=== PATIENT | female | born 2000 | race Caucasian/White ===

== ENCOUNTER 2021-07-21 03:28 | Emergency (ER) | payer SELFPAY ==
--- NOTE | 2021-07-21 04:21 | EDM.PDOC ---
ED HPI GENERAL MEDICAL PROBLEM - General Chief Complaint: ENT Problem Stated Complaint: RT EAR PAIN Time Seen by Provider: 07/21/21 04:07 Source of Information: Reports: Patient, Significant Other History Limitations: Reports: No Limitations - History of Present Illness INITIAL COMMENTS - FREE TEXT/NARRATIVE: Ms. Foster is a pleasant 21-year-old woman who now presents to the ED stating that she has had right ear pain for about a week. She states that she was seen at the walk-in clinic this past 07/18/2021, and was told that there was no problem with her ear, and that pain was likely due to sinusitis. She was prescribed fluticasone nasal spray, which she has been taking as prescribed. He states that her pain has increased, however, and she has since developed a muffled sound in her right ear. She states that she has been taking acetaminophen in addition to the fluticasone. No prior right ear issues. Here in the ED, the patient's initial BP is found to be modestly elevated at 158/78, otherwise, she is hemodynamically stable, afebrile, saturating 100% on room air. She appears to be comfortable, in no acute distress. Prior to 1 week ago, the patient denies having a recent fever, chills, sore throat, ear pain, nasal or sinus congestion, cough, dyspnea, chest pain, palpitations, nausea, vomiting, constipation, diarrhea, abdominal pain, urinary symptoms, recent weight gain or weight loss, recent bloody bowel movements or black bowel movements, recent joint aches, headaches, or rashes. The patient does not have a PCP. She has received 2 COVID vaccinations. Right Ear Pain Score (Numeric/FACES): 8 - Related Data Allergies Allergy/AdvReac Type Severity Reaction Status Date / Time No Known Allergies Allergy Verified 07/21/21 04:07 Home Meds: Home Meds . [No Known Home Meds] 07/21/21 [History] Past Medical History Respiratory History: Reports: Asthma (suspected, not PFT-tested) Psychiatric History: Reports: ADHD (untreated), Anxiety (untreated) Endocrine/Metabolic History: Reports: Obesity/BMI 30+ Social & Family History - Tobacco Use Tobacco Use Status *Q: Never Tobacco User - Alcohol Use Alcohol Use History: Yes Alcohol Use Frequency: Socially - Recreational Drug Use Recreational Drug Use: No - Living Situation & Occupation Living situation: Reports: Single, with Significant Other Occupation: Employed ([employer]) ED ROS ENT - Review of Systems Review Of Systems: Comprehensive ROS is negative, except as noted in HPI. ED EXAM, ENT - Physical Exam Exam: See Below Exam Limited By: No Limitations General Appearance: Alert, WD/WN, No Apparent Distress Eye Exam: Bilateral Eye: EOMI, Normal Inspection Ears: Normal External Exam, Normal Canal, Hearing Grossly Normal, Normal TMs Nose: Normal Inspection, Normal Mucousa, No Blood Mouth/Throat: Normal Inspection, Normal Gums, Normal Lips, Normal Oropharynx, Normal Teeth Head: Atraumatic, Normocephalic Neck: Normal Inspection, Supple, Non-Tender, Full Range of Motion. No: Lymphadenopathy (L), Lymphadenopathy (R) Course - Vital Signs Last Recorded V/S: Last Vital Signs Temp 36.0 C L 07/21/21 04:05 Pulse 88 07/21/21 04:05 Resp 18 07/21/21 04:05 BP 158/78 H 07/21/21 04:05 Pulse Ox 100 07/21/21 04:05 - Re-Assessments/Exams Free Text/Narrative Re-Assessment/Exam: 07/21/21 04:15 On examination of both ears, I see no abnormalities, such as canal swelling or erythema, or TM abnormalities, such as bulging, bubbles, erythema, or purulence. The patient's right ear pain is likely referred pain, therefore I am recommending that she continue to use the fluticasone nasal spray, and I will refer her Dr. Loco, ENT, for further evaluation. Departure - Departure Time of Disposition: 04:18 Disposition: Home, Self-Care 01 Condition: Good Clinical Impression: Referred ear pain - Discharge Information *PRESCRIPTION DRUG MONITORING PROGRAM REVIEWED*: Not Applicable *COPY OF PRESCRIPTION DRUG MONITORING REPORT IN PATIENT ASIM: Not Applicable Instructions: Earache, Adult Referrals: PCP,None [Primary Care Provider] - Anoop Loco MD [Ordering Only Provider] - Forms: ED Department Discharge Additional Instructions: You were seen in the emergency room for 1 week of progressively worsening right ear pain. On examination, no sign of infection was found. Based on your history and physical examination, your right ear pain is most likely a referred ear pain = the problem is caused by irritation of a nerve that serves your right ear, but is not in your right ear. We recommend that you continue to use the fluticasone nasal spray, 2 sprays once a day, as prescribed. In addition to fluticasone, you may also take [id number] ibuprofen, 3 tablets up to every 8 hours, with food, as needed for discomfort. We recommend that you follow-up with the Scrap Iron Loader Dr. Anoop Loco, in [place], at the next available appointment, for further evaluation. If any other problems, please do not hesitate to return to the ER. Sepsis Event Note (ED) - Evaluation Sepsis Screening Result: No Definite Risk - Focused Exam Vital Signs: Vital Signs Temp Pulse Resp BP Pulse Ox 07/21/21 04:05 36.0 C L 88 18 158/78 H 100
== END 2021-07-21 04:40 | disposition home or self-care (01) ==
LOC: JD.ED 03:28
DX: H92.01 Otalgia, right ear (principal); E66.9 Obesity, unspecified
CPT/HCPCS: 99282

== ENCOUNTER 2021-07-22 01:14 | Emergency (ER) | payer SELFPAY ==
[2021-07-22] MEDS ORDERED: LORazepam 1 MG Tab PO ONE (01:53)
--- NOTE | 2021-07-22 02:00 | EDM.PDOC ---
ED HPI GENERAL MEDICAL PROBLEM - General Chief Complaint: Allergic Reaction Stated Complaint: ALLERGIC REACTION Time Seen by Provider: 07/22/21 01:27 Source of Information: Reports: Patient, Significant Other History Limitations: Reports: No Limitations - History of Present Illness INITIAL COMMENTS - FREE TEXT/NARRATIVE: Ms. Foster is a pleasant 21-year-old woman who, medical records indicate, I saw in this ED yesterday morning, 07/21/2021, for complaint of right ear pain for about a week. She reported that she had been seen at the walk-in clinic on 07/18/2021, and was told that there was no problem with her ear, and that the pain was likely due to sinusitis. She was prescribed fluticasone nasal spray, which she had been taking as prescribed. She reported, however, that her pain had increased, and that she had since developed a muffled sound in her right ear. She reported taking acetaminophen in addition to the fluticasone. No prior right ear issues. She was found to be afebrile, in no acute distress. On examination, no abnormalities were seen, such as canal swelling or erythema, or tympanic membrane abnormalities, such as bulging, bubbles, erythema, or purulence. Her right ear pain was felt to be a referred pain, therefore I recommended that she continue to use the fluticasone nasal spray, and follow-up with an supervisor instant potato processing. The patient now reports that following her visit here, she fell and injured her face, therefore was seen at the [facility] ED, where, she states, a CT of her face was performed. She states that no broken bones were found, but that they noticed that she had swelling of her right salivary gland. She states that there was no mention of a fluid collection. No blood work was obtained, and the patient acknowledges that she did not have a fever, however, she states that she was prescribed amoxicillin, along with Wagener. The patient now presents the ED stating that she woke around 00:45 this morning with increased pain to the right side of her face, along with an increased swelling sensation and dizziness. She states that she felt like she was having a panic attack, therefore she used her albuterol MDI. The patient has a history of untreated anxiety disorder. Here in the ED this morning, the patient is found to be tachycardic at 134 bpm, otherwise, she is hemodynamically stable, afebrile, saturating 94% on room air. She appears to be somewhat anxious, although is in no acute distress. The patient reported to the triage nurse that she thought she was having allergic reaction. She denies having a rash or pruritus. She denies feeling dyspneic or wheezing. She denies having any gastrointestinal issues, such as gastritis, abdominal cramps, or diarrhea. She denies having the sensation of lip or oropharyngeal swelling. Prior to tonight, other than the right facial swelling sensation and right ear pain issue, the patient denies having a recent fever, chills, sore throat, nasal or sinus congestion, cough, dyspnea, chest pain, palpitations, nausea, vomiting, constipation, diarrhea, abdominal pain, urinary symptoms, recent weight gain or weight loss, recent bloody bowel movements or black bowel movements, recent joint aches, headaches, or rashes. The patient does not have a PCP. She has received 2 COVID vaccinations. face Pain Score (Numeric/FACES): 10 - Related Data Allergies Allergy/AdvReac Type Severity Reaction Status Date / Time No Known Allergies Allergy Verified 07/22/21 01:33 Home Meds: Home Meds . [No Known Home Meds] 07/21/21 [History] Past Medical History Respiratory History: Reports: Asthma (suspected, not PFT-tested) Psychiatric History: Reports: ADHD (untreated), Anxiety (untreated) Endocrine/Metabolic History: Reports: Obesity/BMI 30+ Social & Family History - Tobacco Use Tobacco Use Status *Q: Never Tobacco User - Caffeine Use Caffeine Use: Reports: Soda - Alcohol Use Alcohol Use History: Yes Alcohol Use Frequency: Socially - Recreational Drug Use Recreational Drug Use: No - Living Situation & Occupation Living situation: Reports: Single, with Significant Other Occupation: Employed ([employer]) ED ROS ALLERGIC REACTION - Review of Systems Review Of Systems: Comprehensive ROS is negative, except as noted in HPI. ED EXAM GENERAL NO PERIP PULSE - Physical Exam Exam: See Below Exam Limited By: No Limitations General Appearance: Alert, WD/WN, No Apparent Distress Eye Exam: Bilateral Eye: EOMI, Normal Inspection Ears: Normal External Exam, Normal Canal, Hearing Grossly Normal, Normal TMs Nose: Normal Inspection, Normal Mucosa, No Blood Throat/Mouth: Normal Inspection, Normal Lips (no swelling), Normal Teeth, Normal Gums, Normal Oropharynx (no uvular swelling), Normal Voice, No Airway Compromise Head: Atraumatic, Normocephalic. No: Facial Swelling (none visible) Neck: Normal Inspection, Supple, Non-Tender, Full Range of Motion Respiratory/Chest: No Respiratory Distress, Lungs Clear, Normal Breath Sounds, No Accessory Muscle Use. No: Decreased Breath Sounds, Crackles, Rhonchi, Wheezing, Stridor, Prolonged Expiration Cardiovascular: Normal Peripheral Pulses, Regular Rate, Rhythm, No Edema, No Gallop, No JVD, No Murmur, No Rub GI/Abdominal: Normal Bowel Sounds, Soft, Non-Tender, No Organomegaly, No Distention, No Abnormal Bruit, No Mass Back Exam: Normal Inspection, Full Range of Motion, NT Extremities: Normal Inspection, Normal Range of Motion, No Pedal Edema, Normal Capillary Refill Neurological: Alert, Oriented, Normal Cognition, No Motor/Sensory Deficits Psychiatric: Anxious Skin Exam: Warm, Dry, Intact, Normal Color, No Rash Course - Vital Signs Last Recorded V/S: Last Vital Signs Temp 37.4 C 07/22/21 01:29 Pulse 134 H 07/22/21 01:29 Resp 20 07/22/21 01:29 BP 118/87 07/22/21 01:29 Pulse Ox 94 L 07/22/21 01:29 - Orders/Labs/Meds Meds: Medications Discontinued Medications Generic Name Dose Route Start Last Admin Trade Name Ruth PRN Reason Stop Dose Admin Lorazepam 1 mg 07/22/21 01:53 07/22/21 01:57 Lorazepam 1 Mg Tab PO 07/22/21 01:54 1 mg ONETIME ONE Administration - Re-Assessments/Exams Free Text/Narrative Re-Assessment/Exam: 07/22/21 01:54 On examination, I do not see any facial swelling or erythema, and her HEENT exam is unremarkable, with no abnormalities of either ear, lip swelling, or uvular swelling. Her lungs are clear to auscultation bilaterally, she has no urticaria or other rash, and denies having pruritus. She is not suffering an allergic reaction. It appears that she is suffering from a panic attack, made worse by albuterol. I have ordered a single dose of lorazepam 1 mg po, and I have also asked the respiratory therapist to provide the patient with a peak flow meter and spacer chamber. In the future, if she is feeling dyspneic, she should check her peak flow, and if it is not in the yellow or red zone, she should not take albuterol. With respect to the finding of right salivary gland swelling on the CT scan at [facility], I see no evidence of salivary gland infection, therefore I do not see an indication for an antibiotic, however, I explained that I have not seen the CT results, therefore I cannot advise her to discontinue it. I will re commend that she follow-up with ENT. Departure - Departure Time of Disposition: 01:58 Disposition: Home, Self-Care 01 Condition: Good Clinical Impression: Panic attack - Discharge Information *PRESCRIPTION DRUG MONITORING PROGRAM REVIEWED*: Not Applicable *COPY OF PRESCRIPTION DRUG MONITORING REPORT IN PATIENT ASIM: Not Applicable Instructions: Panic Attack, [id number] Referrals: PCP,None [Primary Care Provider] - Anoop Loco MD [Ordering Only Provider] - Forms: ED Department Discharge Additional Instructions: You were seen in the emergency room after waking with increased pain, swelling, and dizziness in the setting of being diagnosed with a swollen right salivary g land and being started on Wagener and amoxicillin. Based on your history and physical examination, you suffered a panic attack, made worse by taking albuterol. You were treated with a single dose of the antianxiety medicine lorazepam (Ativan) in the ER. This should help settle your nerves. You were provided with a peak flow meter and spacer chamber. We recommend that you learn how to use your peak flow meter, and check your peak flow a couple of times a week, even if you are feeling well. If you are feeling short of breath with wheezing, with or without a cough, check your peak flow. If it is in the yellow or red zone, take albuterol as prescribed. If it is in the green zone, do not take albuterol. If you are feeling well but your peak flow is in the yellow or red zone, please contact your PCP, as this is an indication that you may suffer an asthma exacerbation within the next 2 weeks. With respect to your swollen right salivary gland, we recommend that you follow- up with the Pharmacy Technology Instructor Dr. Anoop Loco at the next available appointment. If any other problems, please do not hesitate to return to the ER. Sepsis Event Note (ED) - Evaluation Sepsis Screening Result: No Definite Risk - Focused Exam Vital Signs: Vital Signs Temp Pulse Resp BP Pulse Ox 07/22/21 01:29 37.4 C 134 H 20 118/87 94 L
== END 2021-07-22 02:53 | disposition home or self-care (01) ==
LOC: JD.ED 01:14
DX: F41.0 Panic disorder [episodic paroxysmal anxiety] (principal); E66.9 Obesity, unspecified; Z68.41 Body mass index [BMI] 40.0-44.9, adult
CPT/HCPCS: 99283; A9270

== ENCOUNTER 2021-07-28 14:16 | Emergency (ER) | payer SELFPAY ==
--- NOTE | 2021-07-28 16:23 | EDM.PDOC ---
ED HPI GENERAL MEDICAL PROBLEM - General Chief Complaint: Neurological Problem Stated Complaint: R SIDE OF FACE NUMB/PARALYZED Time Seen by Provider: 07/28/21 16:02 Source of Information: Reports: Patient History Limitations: Reports: No Limitations - History of Present Illness INITIAL COMMENTS - FREE TEXT/NARRATIVE: 21-year-old female presents to the ED for evaluation of right facial numbness tingling and obvious asymmetrical smile with her lips pulled to the left side and inability to close her right eye completely. She states she awoke with the symptoms this morning. No pre-existing headache on the right side of her head. She is on eardrops for a right ear infection. She had a COVID-19 vaccination back in March of this year. She has no problems with her vision other than wearing her eyeglasses. She is not off balance. Onset: Today, Sudden Onset Date: 07/28/21 Onset Time: 08:00 Duration: Hour(s):, Getting Worse Location: Reports: Face (Right facial droop and inability to close her right eye completely.) Quality: Reports: Other (Perhaps altered sensation right side of her face.) Severity: Moderate Improves with: Reports: None Worsens with: Reports: None Context: Reports: Other (Spontaneous occurrence). Denies: Activity, Exercise, Lifting, Sick Contact, Trauma Associated Symptoms: Reports: No Other Symptoms Treatments [employer]: Reports: Other (see below) (None.) - Related Data Allergies Allergy/AdvReac Type Severity Reaction Status Date / Time No Known Allergies Allergy Verified 07/28/21 15:02 Home Meds: Home Meds Mineral Oil/Petrolatum Oint [Lacri-Lube S.O.P Oint] 3.5 gm .XX DAILY #3.5 gm 07/28/21 [Rx] predniSONE [Prednisone] 20 mg PO BID #14 tablet 07/28/21 [Rx] valACYclovir HCl [valACYclovir] 1,000 mg PO TID #21 tablet 07/28/21 [Rx] Past Medical History - Past Health History Medical/Surgical History: Denies Medical/Surgical History HEENT History: Reports: Impaired Vision Other HEENT History: glasses Respiratory History: Reports: Asthma Gastrointestinal History: Reports: None Genitourinary History: Reports: None ROPER OPERATOR History: Reports: None Musculoskeletal History: Reports: None Neurological History: Reports: Migraines Psychiatric History: Reports: ADHD, Anxiety Endocrine/Metabolic History: Reports: Obesity/BMI 30+ Hematologic History: Reports: None Immunologic History: Reports: None Oncologic (Cancer) History: Reports: None Dermatologic History: Reports: None - Infectious Disease History Infectious Disease History: Reports: None - Past Surgical History Head Surgeries/Procedures: Reports: None Social & Family History - Family History Family Medical History: No Pertinent Family History - Tobacco Use Tobacco Use Status *Q: Never Tobacco User Second Hand Smoke Exposure: No - Caffeine Use Caffeine Use: Reports: Soda Caffeine Use Comment: Ugalde coke 20 oz per day - Living Situation & Occupation Living situation: Reports: Single, with Significant Other Occupation: Employed ([employer]) ED ROS GENERAL - Review of Systems Review Of Systems: See Below Constitutional: Reports: No Symptoms HEENT: Reports: Glasses Respiratory: Reports: No Symptoms Cardiovascular: Reports: No Symptoms Endocrine: Reports: No Symptoms GI/Abdominal: Reports: Constipation : Reports: No Symptoms Musculoskeletal: Reports: No Symptoms Skin: Reports: No Symptoms Neurological: Reports: No Symptoms Psychiatric: Reports: No Symptoms Hematologic/Lymphatic: Reports: No Symptoms Immunologic: Reports: No Symptoms ED EXAM, NEURO - Physical Exam Exam: See Below Exam Limited By: No Limitations General Appearance: Alert, WD/WN, No Apparent Distress, Other (Patient has obvious asymmetrical smile with her lips pulled over to the left side. This is exacerbated by attempts to smile with right-sided facial weakness. She has inability to close her right eye as well. Temperature is 36.9 degrees heart rate 84 and sinus respiratory 16 O2 sats 98% room air B) Eye Exam: Right Eye: Periorbital Changes (Slight ptosis right upper eyelid inability to close the right eye completely) Ears: Other (Right ear canal is filled of a white-colored wax I presume. The eardrum is not visible. Advised placing couple of drops of olive oil into this ear every night at bedtime for the next 3 to 4 days to see if it will open up. It does have a pearly appearance to it concerning for possible cholesteat ) Throat/Mouth: Normal Oropharynx (Uvula is in the midline), Normal Voice, Other (Asymmetrical smile with lips pulled to the left side with attempt to smile.). No: Normal Teeth Head Exam: Atraumatic, Normocephalic Neck: Normal Inspection, Supple, Non-Tender, Full Range of Motion. No: Lymphade nopathy (L), Lymphadenopathy (R) Respiratory/Chest: No Respiratory Distress, Lungs Clear, Normal Breath Sounds, No Accessory Muscle Use Neurological: Alert, Normal Mood/Affect, Normal Dorsiflexion, CN II-XII Intact, Normal Plantar Flexion, No Motor/Sensory Deficits, Oriented x 3 DTR: 4+: Bicep (R), Bicep (L), Patella (R), Patella (L), Achilles (R), Achilles (L) Extremities: Normal Inspection, Normal Range of Motion, Non-Tender, No Pedal Edema Psychiatric: Normal Affect, Normal Mood Skin Exam: Warm, Dry, Intact, Normal Color, No Rash Course - Vital Signs Last Recorded V/S: Last Vital Signs Temp 36.9 C 07/28/21 14:54 Pulse 84 07/28/21 14:54 Resp 16 07/28/21 14:54 BP 132/92 H 07/28/21 14:54 Pulse Ox 98 07/28/21 14:54 - Radiology Interpretation Free Text/Narrative:: 21-year-old female presents to the ED for evaluation of right-sided facial paresthesias and then she appreciated ptosis of her right upper eyelid with inability to close her right eye completely this morning. She did go to work this morning but was sent from work to the hospital. She has developed an asymmetrical smile with her face pulled to the left side when she attempts to smile. She appreciates saliva and fluids group drooling from the right side of her face. 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 She will be placed on valacyclovir 1 g 3 times daily for 1 week in combination with prednisone 20 mg twice daily breakfast and supper for 7 days as well.. Lacri-Lube ointment to be applied to the lower right eyelid and double patch the right eye closed every night at bedtime to keep it from drying out. Recommended artificial tears 2 drops to the right eye 3 or 4 times daily to keep it moist. Departure - Departure Time of Disposition: 16:17 Disposition: Home, Self-Care 01 Condition: Fair Clinical Impression: Cruz's palsy - Discharge Information *PRESCRIPTION DRUG MONITORING PROGRAM REVIEWED*: Not Applicable *COPY OF PRESCRIPTION DRUG MONITORING REPORT IN PATIENT ASIM: Not Applicable Prescriptions: Mineral Oil/Petrolatum Oint [Lacri-Lube S.O.P Oint] 3.5 gm .XX DAILY #3.5 gm predniSONE [Prednisone] 20 mg PO BID #14 tablet valACYclovir HCl [valACYclovir] 1,000 mg PO TID #21 tablet Instructions: Cruz Palsy, Adult Referrals: PCP,None [Primary Care Provider] - Forms: ED Department Discharge, ED Return to Work/School Form Additional Instructions: Evaluation in the emergency room today in regards to awakening with right sided facial numbness and then you noticed inability to close her right eye completely and that your smile was deviated towards the left side. Neurological exam done through emergency room reveals no other nerves are involved in this illness. You have not had a stroke. You have something called Cruz's palsy which is paralysis of the right 7th cranial nerve which is usually caused by a viral infection such as herpes 6 or herpes 9 virus. It causes inflammation of the nerves were travels through a narrow tunnel which squeezes the nerve and causes a to not work properly. The most important thing in managing this illness is ability to close her eye completely at nighttime as if it cannot close and stays open the surface of the eye will dry out and get infected and can cause blindness if the cornea becomes involved. You will need to place a small line of Lacri-Lube ointment to the inner surface of your lower eyelid at bedtime and then have your eye double taped shut with iPad so that you cannot open your eye at all. You will have to do this every night until muscle function around your eye returns to normal which could be several weeks. Similarly right facial droop will slowly improve but it usually takes between 3 and 12 weeks to heal completely. Treatment is antiviral medicine valacyclovir 1 g 3 times daily for the next 7 days and prednisone 20 mg twice daily for the next 7 days as well. Take your first prednisone tablet when you get them this afternoon and take another one before bed tonight so that it starts to work promptly. Suggest follow-up with your personal care physician in 8 to 9 days time for follow-up of right facial weakness. It is up to you as to whether or not you wish to return to work as per usual. This will often take several weeks to improve and therefore it will not hinder your ability to work. Suggest use of artificial tears to the right eye 2 drops 3 or 4 times daily to keep the eye moist until the muscle function returns to normal. Sepsis Event Note (ED) - Evaluation Sepsis Screening Result: No Definite Risk - Focused Exam Vital Signs: Vital Signs Temp Pulse Resp BP Pulse Ox 07/28/21 14:54 36.9 C 84 16 132/92 H 98
== END 2021-07-28 16:46 | disposition home or self-care (01) ==
LOC: JD.ED 14:16
DX: G51.0 Bell's palsy (principal); E66.9 Obesity, unspecified; Z68.41 Body mass index [BMI] 40.0-44.9, adult
CPT/HCPCS: 99283

== ENCOUNTER 2021-08-11 19:21 | Emergency (ER) | payer SELFPAY ==
--- NOTE | 2021-08-11 20:20 | EDM.PDOC ---
ED HPI GENERAL MEDICAL PROBLEM - General Chief Complaint: Respiratory Problem Stated Complaint: COVID SYMPTOMS Time Seen by Provider: 08/11/21 20:00 Source of Information: Reports: Patient History Limitations: Reports: No Limitations - History of Present Illness INITIAL COMMENTS - FREE TEXT/NARRATIVE: Patient is a 21-year-old female with past medical history of asthma presenting with chief complaint of cough, sore throat, shortness of breath. Patient reports symptoms have been ongoing for the past few days. Patient reports symptoms are not improved with [id number] medication such as Tylenol, DayQuil, ibuprofen. She reports no chest pain, vomiting, diarrhea. No loss of smell, appetite. Patient has been previously vaccinated against Covid and has no known sick c ontacts. Patient reports pain in her throat is significantly worse with swallowing. Generalized Pain Score (Numeric/FACES): 5 - Related Data Allergies Allergy/AdvReac Type Severity Reaction Status Date / Time No Known Allergies Allergy Verified 08/11/21 19:50 Home Meds: Home Meds . [No Known Home Meds] 08/11/21 [History] Past Medical History - Past Health History Medical/Surgical History: Denies Medical/Surgical History HEENT History: Reports: Impaired Vision Other HEENT History: glasses Respiratory History: Reports: Asthma Gastrointestinal History: Reports: None Genitourinary History: Reports: None HAND BUFFING WHEEL FORMER History: Reports: None Musculoskeletal History: Reports: None Neurological History: Reports: Migraines Psychiatric History: Reports: ADHD, Anxiety Endocrine/Metabolic History: Reports: Obesity/BMI 30+ Hematologic History: Reports: None Immunologic History: Reports: None Oncologic (Cancer) History: Reports: None Dermatologic History: Reports: None - Infectious Disease History Infectious Disease History: Reports: None - Past Surgical History Head Surgeries/Procedures: Reports: None Social & Family History - Family History Family Medical History: No Pertinent Family History - Tobacco Use Tobacco Use Status *Q: Never Tobacco User Second Hand Smoke Exposure: No - Caffeine Use Caffeine Use: Reports: None Caffeine Use Comment: Ugalde coke 20 oz per day - Recreational Drug Use Recreational Drug Use: No - Living Situation & Occupation Living situation: Reports: Single, with Significant Other Occupation: Employed ([employer] ED ROS GENERAL - Review of Systems Review Of Systems: See Below Free Text/Narrative/Comment: In addition to that documented in the HPI above, the additional ROS was obtained: Constitutional: Positive for fevers or chills Eyes: Denies vision changes ENMT: Positive for sore throat CV: Denies chest pain Resp: Per HPI GI: Denies vomiting or diarrhea : Denies painful urination MSK: Denies recent trauma Skin: Denies new rashes Neuro: Denies new numbness or tingling or weakness Endocrine: Denies unexpected weight loss Heme: Denies bleeding disorders ED EXAM, GENERAL - Physical Exam Exam: See Below Free Text/Narrative:: I have reviewed the triage vital signs Const: Well nourished, well developed, appears stated age Eyes: Pupils Equal and reactive to light bilaterally, no conjunctival injection HENT: Tonsillar swelling bilaterally with uvula midline. No exudates. Voice is normal. No signs of trauma or swelling, Neck supple without meningismus CV: Regular Rate Rhythm, Warm, well-perfused extremities RESP: Unlabored respiratory effort GI: soft, non-tender, non-distended, no masses MSK: No gross deformities appreciated Skin: Warm, dry. No rashes Neuro: Alert, certified medical biller II-XII grossly intact. Sensation and motor function of extremities grossly intact. Psych: Appropriate mood and affect. #1 Interpretation EKG Date: 08/11/21 Time: 22:57 Rhythm: NSR Rate (Beats/Min): 127 [place]: Normal P-Wave: Present QRS: Normal ST-T: Normal QT: Normal Comparison: NA - No Prior EKG EKG Interpretation Comments: Q waves present in inferior leads. No ST elevation. Sinus tachycardia with rate of 127. Abnormal EKG. Course - Vital Signs Last Recorded V/S: Last Vital Signs Temp 37.2 C 08/11/21 19:49 Pulse 130 H 08/11/21 19:49 Resp 20 08/11/21 19:49 BP 131/81 08/11/21 19:49 Pulse Ox 98 08/11/21 22:59 - Orders/Labs/Meds Orders: Active Orders 24 hr Category Date Time Status RT Aerosol Therapy [RC] ASDIRECTED Care 08/11/21 22:31 Active Chest 1V Frontal [CR] Stat Exams 08/11/21 20:01 Taken Chest PE [Ang Chest] [CT] Stat Exams 08/11/21 21:20 Taken Sodium Chloride 0.9% [Normal Saline] 100 ml Med 08/11/21 21:45 Active IV ASDIRECTED Medication Orders Sodium Chloride (Normal Saline) 100 mls @ 70 mls/min IV ASDIRECTED MUNDO Last Admin: 08/11/21 21:51 Dose: 70 mls/min Documented by: ANA Labs: Laboratory Tests 08/11/21 08/11/21 08/11/21 Range/Units 19:45 20:28 20:30 WBC (3.98-10.04) K/mm3 RBC (3.98-5.22) M/mm3 Hgb (11.2-15.7) gm/dl Hct (34.1-44.9) % MCV (79.4-94.8) fl MCH (25.6-32.2) pg MCHC (32.2-35.5) g/dl RDW Std Deviation (36.4-46.3) fL Plt Count (182-369) K/mm3 MPV (9.4-12.3) fl Neut % (Auto) (34.0-71.1) % Lymph % (Auto) (19.3-51.7) % [place] % (Auto) (4.7-12.5) % Eos % (Auto) (0.7-5.8) Baso % (Auto) (0.1-1.2) % Neut # (Auto) (1.56-6.13) K/mm3 Lymph # (Auto) (1.18-3.74) K/mm3 [place] # (Auto) (0.24-0.36) K/mm3 Eos # (Auto) (0.04-0.36) K/mm3 Baso # (Auto) (0.01-0.08) K/mm3 PT 9.9 (9.7-12.0) SECONDS INR < 0.93 D-Dimer, Quantitative 0.59 H (0.19-0.50) mg/L Sodium (136-145) mEq/L Potassium (3.5-5.1) mEq/L Chloride (98-107) mEq/L Carbon Dioxide (21-32) mEq/L Anion Gap (5-15) BUN (7-18) mg/dL Creatinine (0.55-1.02) mg/dL Est Cr Clr Drug Dosing mL/min Estimated GFR (MDRD) (>60) mL/min BUN/Creatinine Ratio (14-18) Glucose (70-99) mg/dL Calcium (8.5-10.1) mg/dL Total Bilirubin (0.2-1.0) mg/dL AST (15-37) U/L ALT (14-59) U/L Alkaline Phosphatase (46-116) U/L Troponin I (0.00-0.056) ng/mL C-Reactive Protein (<1.0) mg/dL Total Protein (6.4-8.2) g/dl Albumin (3.4-5.0) g/dl Globulin gm/dL Albumin/Globulin Ratio (1-2) Influenza Type A RNA Negative (NEGATIVE) Influenza Type B RNA Negative (NEGATIVE) SARS-CoV-2 RNA (KP) Negative (NEGATIVE) Group A Strep (PCR) Not detected (NOT DETECT) 08/11/21 08/11/21 08/11/21 Range/Units 20:34 20:34 20:34 WBC 9.37 (3.98-10.04) K/mm3 RBC 5.46 H (3.98-5.22) M/mm3 Hgb 15.2 (11.2-15.7) gm/dl Hct 45.5 H (34.1-44.9) % MCV 83.3 (79.4-94.8) fl MCH 27.8 (25.6-32.2) pg MCHC 33.4 (32.2-35.5) g/dl RDW Std Deviation 44.6 (36.4-46.3) fL Plt Count 277 (182-369) K/mm3 MPV 10.7 (9.4-12.3) fl Neut % (Auto) 66.3 (34.0-71.1) % Lymph % (Auto) 19.7 (19.3-51.7) % [place] % (Auto) 10.8 (4.7-12.5) % Eos % (Auto) 2.5 (0.7-5.8) Baso % (Auto) 0.5 (0.1-1.2) % Neut # (Auto) 6.21 H (1.56-6.13) K/mm3 Lymph # (Auto) 1.85 (1.18-3.74) K/mm3 [place] # (Auto) 1.01 H (0.24-0.36) K/mm3 Eos # (Auto) 0.23 (0.04-0.36) K/mm3 Baso # (Auto) 0.05 (0.01-0.08) K/mm3 PT (9.7-12.0) SECONDS INR D-Dimer, Quantitative (0.19-0.50) mg/L Sodium 137 (136-145) mEq/L Potassium 4.3 (3.5-5.1) mEq/L Chloride 100 (98-107) mEq/L Carbon Dioxide 27 (21-32) mEq/L Anion Gap 14.3 (5-15) BUN 10 (7-18) mg/dL Creatinine 0.6 (0.55-1.02) mg/dL Est Cr Clr Drug Dosing 129.15 mL/min Estimated GFR (MDRD) > 60 (>60) mL/min BUN/Creatinine Ratio 16.7 (14-18) Glucose 100 H (70-99) mg/dL Calcium 9.1 (8.5-10.1) mg/dL Total Bilirubin 0.4 (0.2-1.0) mg/dL AST 27 (15-37) U/L ALT 38 (14-59) U/L Alkaline Phosphatase 100 (46-116) U/L Troponin I < 0.017 (0.00-0.056) ng/mL C-Reactive Protein 2.9 H* (<1.0) mg/dL Total Protein 7.6 (6.4-8.2) g/dl Albumin 3.7 (3.4-5.0) g/dl Globulin 3.9 gm/dL Albumin/Globulin Ratio 1.0 (1-2) Influenza Type A RNA (NEGATIVE) Influenza Type B RNA (NEGATIVE) SARS-CoV-2 RNA (KP) (NEGATIVE) Group A Strep (PCR) (NOT DETECT) Meds: Medications Generic Name Dose Route Start Last Admin Trade Name Freq PRN Reason Stop Dose Admin Sodium Chloride 100 mls @ 70 mls/min 08/11/21 21:45 08/11/21 21:51 Normal Saline IV 70 mls/min ASDIRECTED MUNDO Administration Discontinued Medications Generic Name Dose Route Start Last Admin Trade Name Freq PRN Reason Stop Dose Admin Albuterol/Ipratropium 3 ml 08/11/21 22:30 08/11/21 22:52 Albuterol/Ipratropium 3.0-0.5 Mg/3 Ml Neb Soln NEB 08/11/21 22:31 3 ml ONETIME ONE Administration Lactated Ringer's 1,000 mls @ 1,000 mls/hr 08/11/21 23:15 08/12/21 00:22 Ringers, Lactated IV 08/12/21 00:14 1,000 mls/hr .BOLUS ONE Administration Iopamidol 100 ml 08/11/21 21:31 08/11/21 21:51 Iopamidol 755 Mg/Ml 100 Ml Bottle IVPUSH 08/11/21 21:32 100 ml ONETIME ONE Administration Ketorolac Tromethamine 15 mg 08/11/21 21:00 08/11/21 22:23 Ketorolac 15 Mg/Ml Sdv IVPUSH 08/11/21 21:01 15 mg ONETIME ONE Administration Sodium Chloride 10 ml 08/11/21 21:31 08/11/21 21:52 Sodium Chloride 0.9% 10 Ml Sdv FLUSH 08/11/21 21:32 10 ml ONETIME ONE Administration - Re-Assessments/Exams Free Text/Narrative Re-Assessment/Exam: 08/11/21 22:31 Patient reassessed at bedside. She states she is feeling a bit better. Lungs auscultated without any evidence of wheezing. CT angiogram does not show any evidence of pulmonary embolism or acute pathology such as pneumonia. Patient is persistently tachycardic at 130. EKG ordered. Nebulizer ordered. No respiratory distress. Departure - Departure Time of Disposition: 01:11 Disposition: Home, Self-Care 01 Clinical Impression: Viral URI - Discharge Information Instructions: Upper Respiratory Infection, Adult, [id number] Referrals: PCP,None [Primary Care Provider] - Forms: ED Department Discharge, ED Return to Work/School Form Sepsis Event Note (ED) - Focused Exam Vital Signs: Vital Signs Temp Pulse Resp BP Pulse Ox Pulse Ox 08/11/21 22:59 98 08/11/21 19:49 37.2 C 130 H 20 131/81 96 - My Orders Last 24 Hours: My Active Orders 08/11/21 20:01 Chest 1V Frontal [CR] Stat 08/11/21 21:20 Chest PE [Ang Chest] [CT] Stat 08/11/21 21:45 Sodium Chloride 0.9% [Normal Saline] 100 ml IV ASDIRECTED 08/11/21 22:31 RT Aerosol Therapy [RC] ASDIRECTED - Assessment/Plan Last 24 Hours: My Active Orders 08/11/21 20:01 Chest 1V Frontal [CR] Stat 08/11/21 21:20 Chest PE [Ang Chest] [CT] Stat 08/11/21 21:45 Sodium Chloride 0.9% [Normal Saline] 100 ml IV ASDIRECTED 08/11/21 22:31 RT Aerosol Therapy [RC] ASDIRECTED Assessment:: Patient 28-year-old female presenting to the emergency room with a complaint of shortness of breath, fevers, sore throat. Patient had unremarkable ER course. Patient was initially tachycardic in the 130s. Her EKG demonstrates evidence of sinus tachycardia with possible Q waves in the inferior leads. Otherwise no ischemic changes or arrhythmias. Differential diagnosis considered for this patient include Covid pneumonia, bacterial pneumonia, abnormal heart rhythm, pulmonary embolism. Laboratory studies and CT scan demonstrate significant abnormalities. No evidence of pneumonia based on her evaluation. Patient's heart rate states still remain elevated for a while however after the ministration of IV fluids this did improve. On my repeat examination, heart rate was 103. This likely indicates EKG is a component of her tachycardia. Otherwise, Covid test came back negative. She will be discharged and have outpatient follow-up. Return precautions discussed as usual. Patient agrees with plan of care.
[2021-08-11 20:34] LABS: CORONAVIRUS COVID-19 NAA NEGATIVE (NEGATIVE)
[2021-08-11] MEDS ORDERED: Ketorolac 15 MG/ML SDV IVPUSH ONE (21:00)
[2021-08-11] MEDS ORDERED: Sodium Chloride 0.9% 10 ML SDV FLUSH ONE (21:31)
[2021-08-11] MEDS ORDERED: Iopamidol 755 Mg/ML 100 ML Bottle IVPUSH ONE (21:31)
[2021-08-11] MEDS ORDERED: Sodium Chloride 0.9% 100 ML IV SCH (21:45)
[2021-08-11] MEDS ORDERED: Albuterol/Ipratropium 3.0-0.5 MG/3 ML Neb Soln NEB ONE (22:30)
[2021-08-11] MEDS ORDERED: Lactated Ringers 1,000 ML IV ONE (23:15)
--- NOTE | 2021-08-12 06:53 | CR ---
Chest: Portable view of the chest was obtained. Comparison: No previous chest imaging is available, subsequent chest CT performed later on the same day is available. Findings: Heart size and mediastinum are normal. Lungs are clear with no acute parenchymal change. Bony structures show nothing acute. Impression: 1. Nothing acute is seen on portable chest x-ray. Diagnostic code #1
--- NOTE | 2021-08-12 07:24 | CT ---
CT chest Technique: Multiple axial sections were obtained from above the lung apices inferiorly through the lung bases. Intravenous contrast was utilized. Study has been performed as a pulmonary angiogram protocol. Comparison: Prior chest x-ray performed earlier on the same day (8:20 PM). Findings: Pulmonary arteries are not optimally opacified. No filling defects are seen within the main or segmental branches. Smaller more distal subsegmental pulmonary emboli could easily be missed. Thoracic aorta shows no aneurysm. Mediastinum shows no adenopathy. No axillary adenopathy is seen. No pericardial thickening is appreciated. Slight fatty infiltration is seen within the liver. Other visualized upper abdominal structures are within normal limits. Lung window settings were reviewed. No acute parenchymal change is seen. No pleural effusions or pneumothorax is noted. Bone window settings were reviewed which show no acute osseous finding. Impression: 1. Less than optimal opacification of the pulmonary arteries. No findings of pulmonary embolism within the main or segmental branches. Smaller subsegmental pulmonary emboli could be missed. 2. Fatty infiltration within the liver. 3. Other portions of the CT study of the chest appear within normal limits. Diagnostic code #2 I agree with preliminary report from [facility], finalized on 08/11/21, 11:18 PM [employer], code 1
== END 2021-08-12 01:27 | disposition home or self-care (01) ==
LOC: JD.ED 19:21
DX: J06.9 Acute upper respiratory infection, unspecified (principal); E66.9 Obesity, unspecified; Z68.41 Body mass index [BMI] 40.0-44.9, adult; Z20.822 Contact with and (suspected) exposure to COVID-19
CPT/HCPCS: 0240U; 36415; 71045; 71275; 80053; 84484; 85025; 85379; 85610; 86140; 87651; 93005; 94640; 96374; 99284; J1885; J7120; Q9967; J7620-GY

== ENCOUNTER 2021-12-13 22:36 | Emergency (ER) | payer BC ==
[2021-12-13] MEDS ORDERED: Ibuprofen 600 MG Tab PO ONE (23:08)
[2021-12-13 23:52] LABS: CORONAVIRUS COVID-19 NAA NEGATIVE (NEGATIVE)
== END 2021-12-14 00:15 | disposition home or self-care (01) ==
LOC: JD.ED 22:36
DX: H66.92 Otitis media, unspecified, left ear (principal); J06.9 Acute upper respiratory infection, unspecified; E66.9 Obesity, unspecified; Z68.41 Body mass index [BMI] 40.0-44.9, adult; Z20.822 Contact with and (suspected) exposure to COVID-19
CPT/HCPCS: 0240U; 99283; A9270